=== PATIENT | female | born 1975 | race Caucasian/White ===

== ENCOUNTER → 2021-02-08 | Outpatient (CLI) | payer OTHER ==
[2021-02-09 10:13] LABS: RHEUMATOID ARTHRITIS FACTOR <10.0 IU/mL (<14.0)
[2021-02-09 14:13] LABS: RNP ANTIBODIES 0.3 AI (0.0-0.9); SJOGREN'S ANTI-SS-A <0.2 AI (0.0-0.9); SJOGREN'S ANTI-SS-B <0.2 AI (0.0-0.9); SMITH ANTIBODIES <0.2 AI (0.0-0.9)
== END ==
LOC: LAB 12:58
PROVIDERS: Internal Medicine
DX: M25.50 Pain in unspecified joint (principal); M25.40 Effusion, unspecified joint; R53.82 Chronic fatigue, unspecified; M79.10 Myalgia, unspecified site
CPT/HCPCS: 36415; 73630; 82550; 82728; 83520; 83735; 84439; 84443; 85652; 86140; 86200; 86235; 86431

== ENCOUNTER → 2021-06-18 | Outpatient (CLI) | payer OTHER | LOC: SLEEP-COR 14:26 | DX: G47.33 Obstructive sleep apnea (adult) (pediatric) (principal) | CPT/HCPCS: 95810 ==